=== PATIENT | male | born 1970 | race American Indian/Alaskan Native ===

== ENCOUNTER 2021-08-20 12:53 | Outpatient (CLI) | payer BC ==
--- NOTE | 2021-08-20 14:23 | XRay Report ---
BILATERAL KNEES 3 VIEWS INDICATION: PAIN IN UNSPECIFIED KNEE. COMPARISON: None. IMPRESSION: Normal bone mineralization. No evidence for fracture or bone lesion. Mild medial compar tment joint space narrowing is identified in both knees. The lateral compartments and patellofemoral spaces are unremarkable. Trace to small bilateral joint effusions are identified. Signer Name: Lauro Mendoza Jr, MD Signed: 08/20/2021 2:19 PM Workstation Name: [id number]
== END 2021-08-20 12:54 | disposition home or self-care (01) ==
LOC: XRAY 12:53
PROVIDERS: ATTEND Orthopaedic Surgery
DX: M17.0 Bilateral primary osteoarthritis of knee (principal); M25.462 Effusion, left knee; M25.461 Effusion, right knee

== ENCOUNTER 2021-09-07 06:44 | Day surgery (SDC) | payer BC ==
[~2021-09-07 06:44] MED LIST: ACETAMINOPHEN 500 MG TAB PO SCH; CELECOXIB 200 MG CAP PO NR; GABAPENTIN 300 MG CAP PO NR; LACTATED RINGERS 1,000 ML IV SCH; MIDAZOLAM 2 MG/2 ML INJ IV NR; ceFAZolin/STERILE WATER 2 GM/20 ML SYRINGE IV NR
[2021-09-07] MEDS ORDERED: ONDANSETRON 4 MG/2 ML INJ IV PRN (07:36)
[2021-09-07] MEDS ORDERED: oxyCODONE /ACETAMINOPHEN 5-325MG TAB PO PRN (07:36)
--- NOTE | 2021-09-07 07:36 | Anesthesia Consultation ---
Anesthesia Consult and Med Hx Date of service: 09/07/21 - Airway Anesthetic Teeth Evaluation: Good ROM Head & Neck: Adequate Mental/Hyoid Distance: Adequate Mallampati Class: Class III Intubation Access Assessment: Possibly Difficult - Pre-Operative Health Status ASA Pre-Surgery Classification: ASA2 Proposed Anesthetic Plan: General - Pulmonary Hx Smoking: Yes (daily cigars) Hx Respiratory Symptoms: No Hx Sleep Apnea: No (RAJ PRE SCREEN LOW RISK) - Cardiovascular System Hx Hypertension: No - Central Nervous System CVA: No - Endocrine Hx Renal Disease: No Hx Liver Disease: No Hx Insulin Dependent Diabetes: No Hx Non-Insulin Dependent Diabetes: No Hx Thyroid Disease: No - Additional Comments Anesthesia Medical History Comments: No hx anesthetic complications.
--- NOTE | 2021-09-07 07:36 | Anesthesia Day of Surgery ---
Anesthesia Day of Surgery - Day of Surgery Patient Examined: Yes Patient H&P Reviewed: Yes Patient is NPO: Yes
[2021-09-07] MEDS ORDERED: LIDOCAINE MPF (2%) 20 MG/1 ML VIAL 5 ML ONE (07:37)
[2021-09-07] MEDS ORDERED: propofoL 200 MG/20 ML VIAL IV ONE (07:37)
[2021-09-07] MEDS ORDERED: fentaNYL 100 MCG/2 ML INJ ONE (07:37)
[2021-09-07] MEDS ORDERED: dexAMETHasone 20 MG/5 ML VIAL ONE (07:37)
[2021-09-07] MEDS ORDERED: methylPREDNISolone ACETATE 40 MG/1 ML INJ ONE (07:39)
[2021-09-07] MEDS ORDERED: BUPIVACAINE/PF (0.5%) 5 MG/1 ML 10 ML VIAL INFILTRATI ONE ×2 (07:40→08:52)
[2021-09-07] MEDS ORDERED: EPINEPHrine/PF 1 MG/1 ML INJ ONE ×2 (07:40→07:44)
[2021-09-07] MEDS ORDERED: TRIAMCINOLONE 40 MG/1 ML INJ ONE (07:49)
[2021-09-07] MEDS ORDERED: HYDROmorphone 1 MG/1 ML INJ IV PRN (08:00)
[2021-09-07] MEDS ORDERED: ePHEDrine SULFATE 50 MG/1 ML INJ ONE (08:23)
[2021-09-07] MEDS ORDERED: SODIUM CHLORIDE 0.9% IRRIG SOLN 2000 ML IR ONE (08:50)
[2021-09-07] MEDS ORDERED: EPINEPHrine/PF 1 MG/1 ML INJ IRRIGATION ONE (08:51)
[2021-09-07] MEDS ORDERED: TRIAMCINOLONE 40 MG/1 ML INJ IM ONE (08:58)
[2021-09-07] MEDS ORDERED: KETOROLAC 30 MG/1 ML INJ ONE (09:00)
--- NOTE | 2021-09-07 10:45 | Operative Report ---
Operative Report Operative Report: Preop diagnosis : Medial meniscus tear, chronic, right knee Postop diagnosis: 1. Medial meniscus tear posterior horn, right knee 2. Under malacia medial compartment grade 2, right knee 3. Chondromalacia patellae, right knee Procedure: 1. Surgical arthroscopy, right knee 2. Arthromeniscectomy with limited chondroplasty ; medial meniscus/medial femoral condyle, right knee Surgeon: Sonido Hernadez MD Anesthesia: General with LMA Details of operative technique: Patient was prepared in the same-day surgery holding area and then was brought to the operating room where he underwent satisfactory general anesthesia utilizing an LMA. He was placed in the supine position and the right knee was prepped and draped in the usual sterile fashion with ChloraPrep solution. The extremity was then elevated , exsanguinated with an Esmarch bandage and the tourniquet was inflated to 300 mmHg. A timeout was then called by the circulating nurse and once again the correct site was identified. Arthroscopy/Arthromeniscectomy : Arthroscopy was carried out through a lateral approach. On examining the medial compartment there appeared to be more than 1 small articular cartilage loose bodies floating through the compartment with what appeared to be a degenerative type tear of the meniscus with chronic features in the posterior horn of the medial meniscus. The tear was not unstable and was not within millimeters of the posterior rim but was more of a posterior degenerative type tear with a horizontal cleavage component at the junction between the posterior horn and the body of the meniscus. The other striking finding was a significant amount of chondromalacia grade 1 and 2 primarily affecting the condyle as well as a small area along the central portion of the medial tibial plateau. The anterior and posterior cruciate ligaments were intact however there was significant synovitis and synovial buildup. Utilizing a 4.5 shaver the torn portion of the medial meniscus was removed and the remaining rim was trimmed to a relatively normal and stable contour. The meniscus was probed and found to be completely stable with no other tears in the posterior horn. The small loose bodies were also evacuated with suction from the shaver itself. Same instrument was also utilized to remove some of the shaggy edges along the central portion of the medial femoral condyle where there was some delamination and uneven surfaces. This same instrument was also utilized to remove the synovitis present in the anterior notch of the knee. It should be noted that the lateral compartment showed only small chondral loose bodies and no evidence of any significant chondromalacia or any meniscal tear. The patellofemoral compartment also showed no loose bodies but a small amount of chondromalacia in the femoral trochlea with a pristine patellar surface. Patellofemoral tracking was normal. The most important finding was the medial femoral condyle chondromalacia. As stated above a limited chondroplasty was utilized to smooth the rough edges surrounding the geographic shape of the area of concern on the medial femoral condyle. Fluid and debris was then removed from the joint with suction. The arthroscopic portals were then repaired utilizing 2-0 Vicryl subcuticular sutures with Steri- Strips placed on the skin. An ABD dressing was placed and was secured with an Jef wrap. The patient was then awakened and taken to recovery room in excellent condition.
--- NOTE | 2021-09-07 11:46 | Post Anesthesia Evaluation ---
- Post Anesthesia Evaluation Patient Participated: Yes Airway Patent: Yes Stable Respiratory Function: Yes Nausea/Vomiting: No Temp > 96.8F: Yes Pain Manageable: Yes Adequeate Hydration: Yes Anesthesia Complications: No
[2021-09-07 11:57] VITALS: BP 123/71
== END 2021-09-07 10:24 | disposition home or self-care (01) ==
LOC: OR 06:44
PROVIDERS: ATTEND Orthopaedic Surgery
DX: S83.241A Other tear of medial meniscus, current injury, right knee, initial encounter (principal); M94.261 Chondromalacia, right knee; G89.29 Other chronic pain; F17.210 Nicotine dependence, cigarettes, uncomplicated; Z79.899 Other long term (current) drug therapy; Z98.890 Other specified postprocedural states; Z20.822 Contact with and (suspected) exposure to COVID-19; X58.XXXA Exposure to other specified factors, initial encounter; Y93.89 Activity, other specified; Y92.89 Other specified places as the place of occurrence of the external cause; Y99.8 Other external cause status
CPT/HCPCS: 29881; J0171; J0690; J1100; J1885; J2405; J2704; J3010; J3301; J3490; J7120; U0003; J1030